=== PATIENT | male | born 1955 | race African-American/Black ===

== ENCOUNTER 2019-01-20 07:09 | Emergency (ER) | payer MEDICAID ==
[~2019-01-20] VITALS: Ht 188 cm; Wt 105.0 kg
[2019-01-20 10:09] LABS: CLARITY URINE CLEAR (CLEAR); COLOR URINE YELLOW (YELLOW); KETONES URINE NEGATIVE (NEGATIVE); LEUKOCYTE ESTERASE URINE NEGATIVE (NEGATIVE); NITRITE URINE NEGATIVE (NEGATIVE); OCCULT BLOOD URINE NEGATIVE (NEGATIVE); PH URINE 6.5 (4.5-8.0); PROTEIN URINE NEGATIVE (NEGATIVE)
[2019-01-20 10:28] LABS: *AMPHETAMINES SCREEN URINE NEGATIVE (NEGATIVE); *BARBITURATES SCREEN URINE NEGATIVE (NEGATIVE); *BENZODIAZEPINES SCREEN URINE NEGATIVE (NEGATIVE); *COCAINE SCREEN URINE NEGATIVE (NEGATIVE)
[2019-01-20 10:29] LABS: CANNABINOID URINE SCREEN NEGATIVE (NEGATIVE); METHADONE URINE SCREEN NEGATIVE (NEGATIVE); OPIATES URINE SCREEN NEGATIVE (NEGATIVE); PHENCYCLIDINE URINE SCREEN NEGATIVE (NEGATIVE)
[2019-01-20 11:07] LABS: BASOPHILS % 0.6 % (0.0-2.0); EOSINOPHILS % 2.2 % (0.0-5.0); HEMATOCRIT. 49.7 % (42.0-52.0); HEMOGLOBIN. 16.3 g/dL (14.0-18.0); LYMPHOCYTES % 31.3 % (20.0-50.0); MEAN CORPUSCULAR HEMOGLOBIN 30.7 pg (28.0-32.0); MEAN CORPUSCULAR VOLUME 93.2 fL (80.0-94.0); MEAN PLATELET VOLUME 9.6 fl (7.4-10.4); MONOCYTES % 7.9 % (2.0-8.0); PLATELET 178 x1000/uL (130-400); RED BLOOD CELL COUNT 5.33 mill/uL (4.7-6.1)
[2019-01-20 11:14] LABS: CHLORIDE 103 mEq/L (98-107)
[2019-01-20 11:19] LABS: ETHANOL BLOOD < 10 mg/dL
[2019-01-20] MEDS ORDERED: ONDANSETRON 4MG ODT PO ONE (11:45)
[2019-01-20 12:22] VITALS: BP 175/93
== END 2019-01-20 12:15 | disposition home or self-care (01) ==
LOC: ER 07:09
DX: R11.0 Nausea (principal); R42 Dizziness and giddiness; J45.909 Unspecified asthma, uncomplicated; I10 Essential (primary) hypertension
CPT/HCPCS: 36415; 71045; 80053; 80305; 80320; 81003; 84484; 85025; 93005; 99284; Q0162; Z7610; G0480

== ENCOUNTER 2019-03-30 03:24 | Emergency (ER) | payer MEDICAID ==
[~2019-03-30] VITALS: Ht 182.9 cm; Wt 104.0 kg
[2019-03-30] MEDS ORDERED: KETOROLAC 30MG/ML VIAL IV STA (06:33)
[2019-03-30 06:47] LABS: BASOPHILS % 0.4 % (0.0-2.0); EOSINOPHILS % 2.9 % (0.0-5.0); HEMATOCRIT. 46.8 % (42.0-52.0); LYMPHOCYTES % 30.3 % (20.0-50.0); MEAN CORPUSCULAR HEMOGLOBIN 31.4 pg (28.0-32.0); MEAN CORPUSCULAR VOLUME 91.9 fL (80.0-94.0); MEAN PLATELET VOLUME 9.5 fl (7.4-10.4); NEUTROPHILS % 57.4 % (40.0-76.0); PLATELET 204 x1000/uL (130-400); RED BLOOD CELL COUNT 5.09 mill/uL (4.7-6.1); RED CELL DISTRIBUTION WIDTH 13.6 % (11.6-14.6)
[2019-03-30 06:54] LABS: CHLORIDE 104 mEq/L (98-107)
[2019-03-30 06:55] LABS: PROTHROMBIN TIME 10.7 sec (9.6-11.0)
[2019-03-30 08:15] VITALS: BP 137/78
[2019-03-30 08:41] LABS: CLARITY URINE CLEAR (CLEAR); COLOR URINE YELLOW (YELLOW); KETONES URINE NEGATIVE (NEGATIVE); LEUKOCYTE ESTERASE URINE NEGATIVE (NEGATIVE); NITRITE URINE NEGATIVE (NEGATIVE); OCCULT BLOOD URINE NEGATIVE (NEGATIVE); PROTEIN URINE NEGATIVE (NEGATIVE)
== END 2019-03-30 08:20 | disposition home or self-care (01) ==
LOC: ER 03:24
DX: R10.11 Right upper quadrant pain (principal); R11.0 Nausea; R68.83 Chills (without fever); J45.909 Unspecified asthma, uncomplicated; I10 Essential (primary) hypertension
CPT/HCPCS: 36415; 74176; 80053; 81003; 83690; 85025; 85610; 96374; 99284; J1885